=== PATIENT | female | born 1945 | race Caucasian/White ===

== ENCOUNTER → 2017-01-01 | Outpatient (CLI) | payer MEDICARE, BC ==
[~2017-01-01] MED LIST: ATIVAN0.5 MG PO; BUSPAR15 MG PO; CALCIUM 600 +1 EAC1 PO; OMEGA-31000 M1 PO; ONE DAILY WOME1 EACH PO; TOPROL XL25 MG PO; VITAMIN D31000 UNI2 PO
== END | disposition home or self-care (01) ==
LOC: CDC 14:28
DX: C18.2 Malignant neoplasm of ascending colon (principal)
CPT/HCPCS: 93000

== ENCOUNTER 2017-01-07 20:25 | Inpatient (IN) | payer OTHER, BC, MEDICARE ==
[~2017-01-07] VITALS: Ht 154.9 cm; Wt 68.0 kg
[2017-01-08 14:18] VITALS: BP 131/72
[2017-01-08 20:07] VITALS: BP 144/64
[2017-01-08 23:38] VITALS: BP 130/63
[2017-01-09] VITALS (7 sets, daily range): BP systolic 100–142; BP diastolic 53–61
[2017-01-09 08:06] LABS: HEMATOCRIT 33.5 % (36.0-46.0); MCH 27.7 PG (29.0-34.0); MCHC 31.6 G/DL (30.0-36.0); MCV 87.5 FL (83-99); MEAN PLAT.VOLUME 9.2 uM^3 (9.5-12.4); PLATELET COUNT 310 K/uL (156-360); RBC DIS.WIDTH-CV 14.1 % (11.8-14.6); RBC DIS.WIDTH-SD 44.9 % (39-53); RED BLOOD COUNT 3.83 M/uL (3.80-5.20); WHITE BLOOD COUNT 17.5 K/uL (4.1-10.2)
[2017-01-09 08:28] LABS: ANION GAP 6 MEQ/L (2-14); CHLORIDE 105 MEQ/L (99-109); GFR ESTIMATE (CALCULATED) > 59 mL/min/; GLUCOSE 135 mg/dL (70-99); MAGNESIUM 1.5 mg/dl (1.3-2.7); POTASSIUM 4.6 MEQ/L (3.7-5.4); SAMPLE HEMOLYSIS CHECK 0; SAMPLE ICTERIC CHECK 0; SAMPLE LIPEMIA CHECK 0; SODIUM 139 MEQ/L (136-147); UREA NITROGEN (BUN) 11 mg/dL (9-23)
[2017-01-10 03:48] VITALS: BP 128/60
[2017-01-10 06:35] LABS: HEMATOCRIT 31.6 % (36.0-46.0); MCH 27.5 PG (29.0-34.0); MCV 88.8 FL (83-99); MEAN PLAT.VOLUME 9.3 uM^3 (9.5-12.4); PLATELET COUNT 277 K/uL (156-360); RBC DIS.WIDTH-SD 45.5 % (39-53); RED BLOOD COUNT 3.56 M/uL (3.80-5.20); WHITE BLOOD COUNT 11.5 K/uL (4.1-10.2)
[2017-01-10 07:00] LABS: ANION GAP 3 MEQ/L (2-14); CHLORIDE 104 MEQ/L (99-109); GFR ESTIMATE (CALCULATED) > 59 mL/min/; GLUCOSE 112 mg/dL (70-99); POTASSIUM 4.3 MEQ/L (3.7-5.4); SAMPLE HEMOLYSIS CHECK 0; SAMPLE ICTERIC CHECK 0; SAMPLE LIPEMIA CHECK 0; SODIUM 139 MEQ/L (136-147); UREA NITROGEN (BUN) 8 mg/dL (9-23)
[2017-01-10 07:15] VITALS: BP 120/74
[2017-01-10 12:04] VITALS: BP 107/56
[2017-01-10 16:48] VITALS: BP 128/58
[2017-01-10 19:30] VITALS: BP 140/68; BP 158/70
[2017-01-10 23:38] VITALS: BP 142/74
[2017-01-11 03:40] VITALS: BP 145/68
[2017-01-11 06:30] LABS: HEMATOCRIT 31.2 % (36.0-46.0); MCH 27.3 PG (29.0-34.0); MCHC 31.1 G/DL (30.0-36.0); MCV 87.9 FL (83-99); MEAN PLAT.VOLUME 9.4 uM^3 (9.5-12.4); PLATELET COUNT 274 K/uL (156-360); RBC DIS.WIDTH-CV 13.7 % (11.8-14.6); RBC DIS.WIDTH-SD 44.3 % (39-53); RED BLOOD COUNT 3.55 M/uL (3.80-5.20); WHITE BLOOD COUNT 7.5 K/uL (4.1-10.2)
[2017-01-11 06:58] LABS: ANION GAP 4 MEQ/L (2-14); CHLORIDE 104 MEQ/L (99-109); GFR ESTIMATE (CALCULATED) > 59 mL/min/; GLUCOSE 115 mg/dL (70-99); POTASSIUM 4.1 MEQ/L (3.7-5.4); SAMPLE HEMOLYSIS CHECK 0; SAMPLE ICTERIC CHECK 0; SAMPLE LIPEMIA CHECK 0; SODIUM 140 MEQ/L (136-147); UREA NITROGEN (BUN) 5 mg/dL (9-23)
[2017-01-11 08:45] VITALS: BP 145/69
[2017-01-11 11:25] VITALS: BP 166/70
[2017-01-11 15:30] VITALS: BP 146/76
[2017-01-11 19:23] VITALS: BP 164/76
[2017-01-11 23:30] VITALS: BP 127/67
[2017-01-12 03:20] VITALS: BP 131/74
[2017-01-12 07:29] LABS: HEMATOCRIT 36.7 % (36.0-46.0); MCHC 31.6 G/DL (30.0-36.0); MCV 85.5 FL (83-99); RBC DIS.WIDTH-CV 13.5 % (11.8-14.6); RBC DIS.WIDTH-SD 42.4 % (39-53); WHITE BLOOD COUNT 8.1 K/uL (4.1-10.2)
[2017-01-12 07:30] VITALS: BP 115/65
[2017-01-12 07:41] LABS: ANION GAP 10 MEQ/L (2-14); CHLORIDE 102 MEQ/L (99-109); GFR ESTIMATE (CALCULATED) > 59 mL/min/; GLUCOSE 153 mg/dL (70-99); POTASSIUM 4.1 MEQ/L (3.7-5.4); SAMPLE HEMOLYSIS CHECK 0; SAMPLE ICTERIC CHECK 0; SAMPLE LIPEMIA CHECK 0; SODIUM 139 MEQ/L (136-147); UREA NITROGEN (BUN) 6 mg/dL (9-23)
[2017-01-12 07:59] LABS: PLATELET COUNT 368 K/uL (156-360); RED BLOOD COUNT 4.29 M/uL (3.80-5.20)
[2017-01-12 11:25] VITALS: BP 122/62
[2017-01-12 16:17] VITALS: BP 128/63
[2017-01-12 19:50] VITALS: BP 137/98
[2017-01-12 23:15] VITALS: BP 115/60
[2017-01-13 03:32] VITALS: BP 125/68
[2017-01-13 07:41] LABS: HEMATOCRIT 32.2 % (36.0-46.0); MCH 27.2 PG (29.0-34.0); MCHC 31.7 G/DL (30.0-36.0); MCV 85.9 FL (83-99); MEAN PLAT.VOLUME 9.4 uM^3 (9.5-12.4); PLATELET COUNT 337 K/uL (156-360); RBC DIS.WIDTH-CV 13.8 % (11.8-14.6); RBC DIS.WIDTH-SD 43.1 % (39-53); RED BLOOD COUNT 3.75 M/uL (3.80-5.20)
[2017-01-13 07:57] VITALS: BP 135/70
[2017-01-13 08:08] LABS: ANION GAP 6 MEQ/L (2-14); CHLORIDE 106 MEQ/L (99-109); GFR ESTIMATE (CALCULATED) > 59 mL/min/; GLUCOSE 116 mg/dL (70-99); POTASSIUM 4.4 MEQ/L (3.7-5.4); SAMPLE HEMOLYSIS CHECK 0; SAMPLE ICTERIC CHECK 0; SAMPLE LIPEMIA CHECK 0; SODIUM 140 MEQ/L (136-147); UREA NITROGEN (BUN) 5 mg/dL (9-23)
[2017-01-13 16:55] VITALS: BP 137/70
[2017-01-14 00:03] VITALS: BP 132/58
[2017-01-14 06:25] LABS: HEMATOCRIT 30.6 % (36.0-46.0); MCH 28.2 PG (29.0-34.0); MCV 85.5 FL (83-99); MEAN PLAT.VOLUME 9.4 uM^3 (9.5-12.4); PLATELET COUNT 348 K/uL (156-360); RBC DIS.WIDTH-CV 13.7 % (11.8-14.6); RBC DIS.WIDTH-SD 42.6 % (39-53); RED BLOOD COUNT 3.58 M/uL (3.80-5.20); WHITE BLOOD COUNT 7.1 K/uL (4.1-10.2)
[2017-01-14 06:41] LABS: ANION GAP 7 MEQ/L (2-14); CHLORIDE 106 MEQ/L (99-109); GFR ESTIMATE (CALCULATED) > 59 mL/min/; GLUCOSE 90 mg/dL (70-99); POTASSIUM 4.2 MEQ/L (3.7-5.4); SAMPLE HEMOLYSIS CHECK 0; SAMPLE ICTERIC CHECK 0; SAMPLE LIPEMIA CHECK 0; SODIUM 141 MEQ/L (136-147); UREA NITROGEN (BUN) 6 mg/dL (9-23)
[2017-01-14 07:54] VITALS: BP 135/60
[2017-01-14] MEDS ORDERED: HYDROCODON-ACE1 EAC7 PO (10:13)
[2017-01-14 13:26] LABS: C DIFF TOXIN NEGATIVE (NEGATIVE)
[2017-01-14 13:27] LABS: PROBE CHECK PASS; SPECIMEN PROCESSING CONTROL PASS
[2017-01-14 16:22] VITALS: BP 115/63
[2017-01-14 23:06] VITALS: BP 133/66
[2017-01-15 06:41] LABS: MCH 26.8 PG (29.0-34.0); MCHC 31.6 G/DL (30.0-36.0); MCV 84.9 FL (83-99); MEAN PLAT.VOLUME 8.9 uM^3 (9.5-12.4); PLATELET COUNT 354 K/uL (156-360); RBC DIS.WIDTH-CV 13.8 % (11.8-14.6); RBC DIS.WIDTH-SD 42.8 % (39-53); RED BLOOD COUNT 3.77 M/uL (3.80-5.20); WHITE BLOOD COUNT 6.2 K/uL (4.1-10.2)
[2017-01-15 07:06] LABS: ANION GAP 8 MEQ/L (2-14); CHLORIDE 105 MEQ/L (99-109); GFR ESTIMATE (CALCULATED) > 59 mL/min/; GLUCOSE 96 mg/dL (70-99); POTASSIUM 4.2 MEQ/L (3.7-5.4); SAMPLE HEMOLYSIS CHECK 0; SAMPLE ICTERIC CHECK 0; SAMPLE LIPEMIA CHECK 0; SODIUM 141 MEQ/L (136-147); UREA NITROGEN (BUN) 10 mg/dL (9-23)
[2017-01-15 07:42] VITALS: BP 121/68
== END 2017-01-15 13:17 | disposition home or self-care (01) | DRG 330 ==
LOC: ENRESERV 20:25 → 2SOUTH 01-08 09:08 → 2EAST 01-08 13:06 → 2SOUTH 01-08 13:06 → ENRESERV 01-08 19:01 → 2EAST 01-08 19:18
PROVIDERS: Physician Assistant; Surgery
PROC: 0DTF0ZZ Resection of Right Large Intestine, Open Approach (ICD-10-PCS; principal; 2017-01-09)
DX: C18.2 Malignant neoplasm of ascending colon (principal); K66.0 Peritoneal adhesions (postprocedural) (postinfection); K62.5 Hemorrhage of anus and rectum; I10 Essential (primary) hypertension; F32.9 Major depressive disorder, single episode, unspecified; F41.1 Generalized anxiety disorder; Z72.0 Tobacco use
CPT/HCPCS: 80048; 83735; 84100; 85027; 86850; 86900; 86901; 87493; 88309; 94799; C1751; J1100; J1335; J2250; J2405; J2710; J3010; J7050; J7120